=== PATIENT | female | born 1980 | race Hispanic/Latino ===

== ENCOUNTER 2016-11-26 21:17 | Inpatient (IN) | payer OTHER ==
[~2016-11-26] VITALS: Ht 152.4 cm; Wt 61.6 kg
[2016-11-26] MEDS ORDERED: DERMABOND TOPICAL SKIN ADHESIVE TOP ONE (22:30)
[2016-11-26] MEDS ORDERED: ADACEL/BOOSTRIX VACCINE (DIPHTH/PERTUSS/ACELL/TETANUS)0.5ML SYR (90715) IM ONE (22:30)
[2016-11-27] MEDS: YAZ PO SCH (09:00)
[2016-11-27] MEDS ORDERED: MAALOX 30 ML SUSP *UDC PO PRN (14:15)
[2016-11-27] MEDS ORDERED: MOM 30ML SUSPENSION UDC PO PRN (14:15)
[2016-11-27] MEDS ORDERED: traZODone 50 MG TAB PO PRN (14:15)
--- NOTE | 2016-11-27 14:50 | HPEPDOC ---
Medical History and Physical Date of Admission Nov 27, 2016 at 10:12 History and Physical PCP: [facility] ATTENDING: Dr. Aj Lemus HPI: 36yoF admitted to [facility] for unspecified depressive disorder, being medically examined today. No acute medical complaints today. Patient with 2 lacerations on the left forearm with Dermabond intact. Denies any fevers, chills , weakness, fatigue, H[place]IN[place], CP, SOB, cough, palpitations, abdominal pain, N/V/D or changes in bowel or bladder habits. 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 Siblings: 2 brothers, one sister Alive, diabetes Children: Alive, well Unexpected deaths due to medical reasons: None. ROS: As noted in HPI, otherwise 11pt ROS of systems reviewed and remarkable only for LMP unknown. PE: GEN: 36yoF, appears stated age. Well-nourished, well developed. No acute distress. Alert and oriented x 3. Pleasant, interactive. HEENT: Normocephalic, atraumatic. Pupils are equal, round, and reactive to light. Extraocular movements are intact. No nystagmus appreciated. Sclera are nonicteric. Conjunctiva without injection. Nose midline. Nasal turbinates without bogginess. EACs both patent BL. TMs both visualized and muniz with good cone of light, no bulging or erythema. No facial asymmetry. Moist mucous membranes. Dentition fair. Pharynx pink and moist, no cobblestoning. Neck supple , trachea midline. No lymphadenopathy or thyromegaly appreciated. CHEST: Regular rate and rhythm, +S1, +S2 LUNGS: Clear to auscultation bilaterally. No wheezes, rales, or rhonchi. Breathing appears symmetric and easy. Patient is speaking in full sentences. No accessory muscle use. ABD: Round, soft, non-tender, non-distended. +Bowel sounds throughout. No rebound or guarding. No costovertebral angle tenderness. EXT: Pulses 2+ bilaterally dorsalis pedis and radial. No lower extremity edema appreciated. SKIN: [place], dry, warm. Capillary refill <2sec. No rashes. NEURO: Alert and oriented x 3. Cranial nerves III-XII are intact. No focal deficits appreciated. EKG: pending. A&P: 36yoF admitted to [facility] for unspecified depressive disorder 1. Psych. Plan per Psychiatry. Obtain baseline EKG to assure the safety of psychiatric medications as they can prolong the QT interval. 2. Laceration left forearm. Dermabond intact. Tdap given in ED. 3. Add Hcg to admission labs. 4. Follow up with PCP on discharge. 5. Staff member Evi FLORES present throughout exam. Vital Signs Vital Signs Label Value Date Time Patient Temperature 97.9 degrees F 11/27/16 1148 Temperature Source Oral 11/27/16 1148 Pulse 78 11/27/16 1148 Respiratory Rate 18 bpm 11/27/16 1148 Blood Pressure Assessment 121/70 (87) 11/27/16 1148 Location Right Arm Source Automatic Cuff (NIBP) Bedside Pulse Oximetry 95 % 11/27/16 1148 Item Value Date Time Oxygen Delivery Method Room Air 11/27/16 1148 Laboratory Data Labs 24H Laboratory Tests 2 11/26/16 22:37: Acetaminophen Level < 2.0L, Aspartate Amino Transf (AST/SGOT) 15, Alanine Aminotransferase (ALT/SGPT) 15, Alkaline Phosphatase 51, Total Bilirubin 0.2, Direct Bilirubin < 0.1, Albumin 3.5, Albumin/Globulin Ratio 1.03, Anion Gap 9, Calcium Level 8.3L, Ethyl Alcohol Level < 0.003, Glomerular Filtration Rate > 60.0, Salicylates Level < 1.7L, Thyroid Stimulating Hormone (TSH) 1.220, Total Protein 6.9, Urine Amphetamines Screen NEGATIVE, Urine Benzodiazepines Screen NEGATIVE, Urine Opiates Screen NEGATIVE, Urine Barbiturates Screen NEGATIVE, Urine Cannabinoids Screen NEGATIVE, Urine Cocaine Metabolite Screen NEGATIVE, Urine Methadone Screen NEGATIVE, Urine Phencyclidine Screen NEGATIVE CBC/BMP Laboratory Tests 11/26/16 22:37 Red Blood Count 4.17, Mean Corpuscular Volume 89.5, Mean Corpuscular Hemoglobin 30.1, Mean Corpuscular Hemoglobin Concent 33.6, Red Cell Distribution Width 12.6 Home Medications No Active Prescriptions or Reported Meds Allergies Coded Allergies: No Known Allergies (Unverified , 11/26/16) Gretchen Cedillo Nov 27, 2016 14:49
[2016-11-27 18:00] VITALS: BP 109/70
[2016-11-28 06:18] VITALS: BP 118/73
[2016-11-28] MEDS: YAZ PO SCH (09:00)
[2016-11-28] MEDS: CitaloPRAM (CeleXA) 20 MG TAB PO SCH (10:22)
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
[2016-11-28 18:00] VITALS: BP 119/69
[2016-11-28] MEDS: ACETAMINOPHEN TAB 650MG DOSE (2X325MG) PO PRN (21:44)
--- NOTE | 2016-11-28 22:32 | ECGEPIP ---
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 No prior ECG available for comparison at the time of interpretation. Electronically Signed On 11-28-2016 22:32:26 EDT by Aj Lacey
[2016-11-29 06:13] VITALS: BP 114/55
[2016-11-29] MEDS: YAZ PO SCH (09:00)
[2016-11-29] MEDS: CitaloPRAM (CeleXA) 20 MG TAB PO SCH (09:41)
--- NOTE | 2016-11-29 13:31 | IPN ---
DATE: 11/29/2016 This patient states today she has been treated well. She used Zoloft in the past and was unhappy with it causing her headaches and poor sleep. She stated her mood was improving, but her affect continues to be very flat and sad. She states she will stop contact with her who is now in [place]. She states she needs a "cooling off period". She sees a counselor in [place] and has seen him twice. Her appetite is good. She did not cry yesterday. She states she has been taking deep breaths. I met with her and staff in addition and discussed discharge planning where she will be followed up at the [facility] as well as her counselor in [place]. The patient is presently on Celexa and I explained to her that I wanted to see some improvement in her mood and panic attacks prior to discharging. She is presently on citalopram 20 in the morning, trazodone 50 as needed. I will increase the citalopram to 30.
[2016-11-29] MEDS: ACETAMINOPHEN TAB 650MG DOSE (2X325MG) PO PRN (13:38)
[2016-11-29 18:02] VITALS: BP 119/72
[2016-11-30 06:36] VITALS: BP 105/56
[2016-11-30] MEDS: YAZ PO SCH (09:00)
[2016-11-30] MEDS: CitaloPRAM (CeleXA) 10 MG TABLET PO SCH (09:01)
--- NOTE | 2016-11-30 10:59 | IPN ---
DATE: 11/30/2016 She states her anxiety is returning. She is shaky and worrying. She is worrying about her son. She is worrying about how he is doing since he is staying with the . She is trying not to talk to her . She is worrying about work. She states she needs work to relax. She is worried about her dogs, a 12 year old Cocker Spaniel and a 9 year old Pug. Ramona, environmental planner and protective services social worker, is working with her and will be meeting with her today. She is having no significant side effects of medication. Her sleep is described as on and off. I have increased her citalopram to 30 mg. Plan to observe patient for clinical improvement prior to discharge.In addition she expresses some compulsive behaviors by history. IMPRESSION: Major depression with anxiety. Panic attacks. Patient has not had any panic attacks in the hospital. BILL
[2016-11-30 18:00] VITALS: BP 131/79
[2016-12-01 06:14] VITALS: BP 107/69
[2016-12-01] MEDS: CitaloPRAM (CeleXA) 10 MG TABLET PO SCH (08:03)
[2016-12-01] MEDS: YAZ PO SCH (08:03)
--- NOTE | 2016-12-01 11:37 | IPN ---
DATE: 12/01/2016 Gilda Bermudez is much improved this morning, less shaky, less worrying and smiling. 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 She is not expressing any significant worries today and she is not expressing any side effects of medication. Affect is significantly brighter and her discharge planning for next week will be made. Her mood is good. Her affect is bright. No disturbance of speech. No disturbance of thought process. No loose associations. No psychotic thoughts. Judgment and insight improved. Fully oriented. Recent and remote memory intact. Attention and concentration are normal. No disturbances of language. Mood is good. Affect is bright. PLAN: To discharge patient next week. Continue on citalopram as prescribed. DIAGNOSIS: Major depression with anxiety. MTDD
[2016-12-01 18:00] VITALS: BP 108/67
[2016-12-02 06:54] VITALS: BP 120/66
[2016-12-02] MEDS: CitaloPRAM (CeleXA) 10 MG TABLET PO SCH (08:28)
[2016-12-02] MEDS: YAZ PO SCH (08:29)
[2016-12-02 18:00] VITALS: BP 102/60
[2016-12-03 06:30] VITALS: BP 96/56
[2016-12-03] MEDS: YAZ PO SCH (08:11)
[2016-12-03] MEDS: CitaloPRAM (CeleXA) 10 MG TABLET PO SCH (08:11)
[2016-12-03 18:00] VITALS: BP 108/59
[2016-12-04 06:51] VITALS: BP 125/76
[2016-12-04] MEDS: CitaloPRAM (CeleXA) 10 MG TABLET PO SCH (08:11)
[2016-12-04] MEDS: YAZ PO SCH (08:11)
[2016-12-04] MEDS ORDERED: CELE10TA PO (08:38)
--- NOTE | 2016-12-04 15:35 | MHDS ---
DATE OF ADMISSION: 11/27/2016 DATE OF DISCHARGE: 12/04/2016 The emergency room reported that this patient was having an exceptionally bad week and she and her estranged were arguing frequently. The patient states she became physically and emotionally exhausted and made superficial cuts on her arm. Her has left for [place]. He has permission and authorization to take her son. 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 The patient stated that she was not suicidal but was so angry. EDUCATIONAL HISTORY: She has an Associate's Degree in general studies. 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 Her deployments have been in [place] and [place]. PAST MEDICAL HISTORY: No significant medical problems. PAST PSYCHIATRIC HISTORY: She has had outpatient treatment at [facility] and had a trial, according to the patient, of Zoloft. [facility] but, in fact, wanted to get marital counseling and was very disappointed in the treatment. Patient has a history of panic attacks as well as some compulsive cleaning. This recently was the first time she had anxiety attacks at work. She has used Atarax for this condition and had a previous trial of Zoloft with side effects. MEDICAL EXAMINATION: By Gretchen Cedillo, had no significant suggestions at this time. LABORATORY EXAMINATION: CBC was within normal range. Serum chemistry showed a mildly low calcium. Toxicology screen was negative. COURSE ON THE UNIT: Patient was started on Celexa 20 mg and trazodone 50 at night. My plan was to increase the citalopram to 30 mg. On 11/30/2016, she stated her anxiety was returning, she was shaking and worrying about her son, worrying about how her son was doing staying with her . She stated she was trying not to talk to her . She was worried about work. She states she needs work to relax. She also worries about her 9-year-old and 12-year-old dogs. On 12/01/2016, patient was much improved with less shaking, less worrying , and smiling, with no complaints of side effect of medication. Her affect was bright. Her mood was good. There was no disturbance of speech, no disturbance of thought processes, no loose associations, no psychotic thoughts. Judgment and insight were improved. She was fully oriented. Recent and remote memory intact. Attention and concentration were normal. No disturbance of language. Mood was good. Affect was bright. 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 DISCHARGE DIAGNOSES: 1. Major depression. 2. Anxiety disorder. FOLLOWUP: Was planned by discharge planning for outpatient treatment and medication followup. BILL
== END 2016-12-04 13:50 | disposition home or self-care (01) | DRG 881 ==
LOC: M ED 23:19 → M ED INP 11-27 10:12 → M PSY 11-27 11:55
PROVIDERS: ADMIT Psychiatry & Neurology Psychiatry; ATTEND Psychiatry & Neurology Child & Adolescent Psychiatry
DX: F32.9 Major depressive disorder, single episode, unspecified (principal); F41.9 Anxiety disorder, unspecified